=== PATIENT | female | born 2005 | race Caucasian/White ===

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

== ENCOUNTER 2023-01-04 18:36 | Emergency (ER) | payer MEDICAID, SELFPAY ==
[2023-01-04 18:45] VITALS: BP 136/81; PULSE 92; RESP 16; TEMP 36.4; O2SAT 99; BMI 25.5
--- NOTE | 2023-01-04 18:45 | ED.NAVMDI ---
HPI - Nausea/Vomiting/Diarrhea General Chief complaint: Nausea/Vomiting/Diarrhea Stated complaint: , dehydrated, cant eat Time Seen by Provider: 01/04/23 19:25 Source: patient Mode of arrival: ambulatory History of Present Illness HPI Narrative: 17-year-old female , LMP unclear but she is 5 months and presents with increasing nausea and vomiting and states she has not had her fluid replaced even after being seen at [facility] on 12/31 and she was not provided any medication for nausea control. Related Data Previous Rx's Medication Instructions Recorded pyridoxine (vitamin B6) 25 mg 25 mg PO TID #90 tabs 01/04/23 tablet Allergies Allergy/AdvReac Type Severity Reaction Status Date / Time No Known Allergies Allergy Unverified 07/08/21 21:42 [No Known Allergies*] Review of Systems Review of Systems: Pertinent positives and negatives as stated in HPI PMFSH Past Medical History Source: nursing notes reviewed Medical History No known health problems Social History Social History Alcohol intake: never Smoked in Last 30 Days: No Use of substances other than those prescribed or required for medical reasons: No Any prior treatment program specific to substance use: No Advance Directives: No Advance Directives Information Provided: No Patient : Yes Physical Exam Vital Signs: Vital Signs: Last Vital Signs Temp 99.4 F 01/04/23 22:25 Pulse 87 01/04/23 22:25 Resp 16 01/04/23 22:25 BP 116/78 01/04/23 22:25 Pulse Ox 100 01/04/23 22:25 O2 Del Method Room Air 01/04/23 22:25 BMI result Body Mass Index 25.5 VITAL SIGNS: Reviewed. GENERAL: Well developed, well nourished, in no acute distress. HEAD: Normocephalic/atraumatic EYES: PERRLA, EOMI EARS: Ext canals without abnormality NOSE: Nares patent bilateral OROPHARYNX: no oral lesions noted, posterior pharynx clear NECK: Supple, no adenopathy LUNGS: Normal breath sounds. No adventitious sounds or accessory muscle use. SpO2<100> CARDIOVASCULAR: Regular rate and rhythm without noted murmurs ABDOMEN: Soft, non-tender, non-distended with bowel sounds. MUSCULOSKELETAL: No tenderness, deformities, or effusions noted on gross inspection. EXTREMITIES: No cyanosis, clubbing or edema. SKIN: Inspection of the skin reveals no rashes NEUROLOGIC: Alert and oriented x 4. Strength and sensation to light touch were grossly intact x 4. Course Course Course Narrative: This is a rapid medical exam. Deferred additional HPI, ROS, PE to primary provider. 17 yo female previously healthy here with vomiting, chest pain, upper abdominal pain x 1 week, found out she was recently. LMP-irregular (sometime in october) Hasn't had US to confirm IUP WIll check labs, UA, EKG, give SL zofran VSS Medications Administered Discontinued Medications Generic Name Dose Route Start Last Admin Trade Name Freq PRN Reason Stop Dose Admin Sodium Chloride 2,000 mls @ 999 mls/hr 01/04/23 19:30 01/04/23 22:15 Ns IV 01/04/23 21:30 Infused .Q2H1M DIANNE Infusion Sodium Chloride 2,000 mls @ 999 mls/hr 01/04/23 20:00 01/04/23 21:19 Ns IV 01/04/23 22:00 Not Given .Q2H1M DIANNE Potassium Chloride 10 meq in 100 mls @ 100 mls/hr 01/04/23 21:00 01/04/23 23:21 Potassium Chloride/H20 IV 01/04/23 22:59 Infused Q1H DIANNE Infusion Ondansetron HCl 4 mg 01/04/23 18:47 01/04/23 20:06 Ondansetron Odt 4 Mg Tab.Oksana PRAJAPATIINGU 01/04/23 18:48 4 mg ONCE ONE Administration Medical Decision Making Medical Decision Making [facility] Narrative: 17-year-old female who is once again after 5 months and presenting with suspected related nausea and vomiting. She is afebrile, no evidence of infection, anemia but she does have a hypo kalemia which is consistent with her history of nausea and vomiting and will be repleted with 20 mEq total of potassium chloride as well as 2 L of IV fluids and she has already received Zofran for the nausea and vomiting. On re-evaluation patient is feeling much better and is noted to tolerate oral intake, review of all investigations my interpretation is as patient has had nausea and vomiting secondary to and has been rehydrated and had her potassium repleted and will be discharged home with first-line antinausea medications during . Differential Diagnosis Please see the discussion above Lab Data Please see the discussion above 01/04/23 19:11 01/04/23 19:11 Labs: Lab Results 01/04/23 01/04/23 01/04/23 Range/Units 19:11 19:11 19:13 WBC 8.8 (4.8-10.8) X10*3/uL RBC 5.34 (4.20-5.50) X10*6/uL Hgb 14.9 (12.0-16.0) g/dl Hct 41.3 (37.0-47.0) % MCV 77.3 L (80.0-98.0) fL MCH 27.9 (27.0-33.0) pg MCHC 36.1 H (31.0-35.0) g/dl RDW 13.2 (11.0-16.0) % Plt Count 293 (160-400) X10*3/uL MPV 11.2 (9.4-12.3) fL Immature Gran % (Auto) 0.2 (0.0-0.4) % Neut % (Auto) 73.1 H (45-73) % Lymph % (Auto) 19.8 L (20-40) % [place] % (Auto) 6.7 (2-11) % Eos % (Auto) 0.0 (0-4) % Baso % (Auto) 0.2 (0-2) % Lymph # (Auto) 1.8 (1.2-4.9) X10*3/uL [place] # (Auto) 0.6 (0.1-1.2) X10*3/uL Eos # (Auto) 0.0 (0.0-0.4) X10*3/uL Baso # (Auto) 0.0 (0.0-0.2) X10*3/uL Abs Immat Gran (auto) 0.02 (0.00-0.03) X10*3/uL Absolute Neuts (auto) 6.4 (2.0-8.3) x10*3/uL Absolute Nucleated RBC 0.000 (0.0-0.012) X10*3/uL Nucleated RBC % (auto) 0.0 (0.0-0.2) /100WBC Sodium 135 (135-145) mmol/L Potassium 2.8 L (3.3-5.1) mmol/L Chloride 97 (96-108) mmol/L Carbon Dioxide 24 (22-29) mmol/L Anion Gap 17 (12-20) BUN 6 L (9-16) mg/dL Creatinine 0.66 (0.5-1.4) mg/dL Estim Creat Clear Calc 134.0 Estimated GFR > 60 Random Glucose 101 (60-115) mg/dL Calcium 10.1 (8.4-10.2) mg/dL Magnesium 2.4 (1.6-2.6) mg/dL Total Bilirubin 0.9 (0.0-1.0) mg/dL Direct Bilirubin 0.3 (0.0-0.5) mg/dL AST 17 (5-31) U/L ALT 15 (0-31) U/L Alkaline Phosphatase 84 (39-117) U/L Total Protein 8.7 H (6.5-8.0) g/dL Albumin 4.9 (3.5-5.0) g/dL Urine Color Dark Yellow Urine Appearance Clear Urine pH 6.5 (5.0-9.0) Ur Specific Thomson >= 1.030 H (1.005-1.025) Urine Protein 100 (2+) H (Neg-Trace) mg/dL Urine Glucose (UA) Negative (Negative) mg/dL Urine Ketones 40 (Negative) mg/dL Urine Blood Negative (Negative) Urine Nitrite Negative (Negative) Ur Leukocyte Esterase Trace H (Negative) Urine RBC 3-5 H (0-2) /HPF Urine WBC 6-10 H (0-5) /HPF Ur Squamous Epith Cells 6-10 (0-2) /HPF Urine Bacteria Trace (None Seen) Hyaline Casts 0-2 (0-2) /LPF Urine Test (NEGATIVE) 01/04/23 Range/Units 19:13 WBC (4.8-10.8) X10*3/uL RBC (4.20-5.50) X10*6/uL Hgb (12.0-16.0) g/dl Hct (37.0-47.0) % MCV (80.0-98.0) fL MCH (27.0-33.0) pg MCHC (31.0-35.0) g/dl RDW (11.0-16.0) % Plt Count (160-400) X10*3/uL MPV (9.4-12.3) fL Immature Gran % (Auto) (0.0-0.4) % Neut % (Auto) (45-73) % Lymph % (Auto) (20-40) % [place] % (Auto) (2-11) % Eos % (Auto) (0-4) % Baso % (Auto) (0-2) % Lymph # (Auto) (1.2-4.9) X10*3/uL [place] # (Auto) (0.1-1.2) X10*3/uL Eos # (Auto) (0.0-0.4) X10*3/uL Baso # (Auto) (0.0-0.2) X10*3/uL Abs Immat Gran (auto) (0.00-0.03) X10*3/uL Absolute Neuts (auto) (2.0-8.3) x10*3/uL Absolute Nucleated RBC (0.0-0.012) X10*3/uL Nucleated RBC % (auto) (0.0-0.2) /100WBC Sodium (135-145) mmol/L Potassium (3.3-5.1) mmol/L Chloride (96-108) mmol/L Carbon Dioxide (22-29) mmol/L Anion Gap (12-20) BUN (9-16) mg/dL Creatinine (0.5-1.4) mg/dL Estim Creat Clear Calc Estimated GFR Random Glucose (60-115) mg/dL Calcium (8.4-10.2) mg/dL Magnesium (1.6-2.6) mg/dL Total Bilirubin (0.0-1.0) mg/dL Direct Bilirubin (0.0-0.5) mg/dL AST (5-31) U/L ALT (0-31) U/L Alkaline Phosphatase (39-117) U/L Total Protein (6.5-8.0) g/dL Albumin (3.5-5.0) g/dL Urine Color Urine Appearance Urine pH (5.0-9.0) Ur Specific Thomson (1.005-1.025) Urine Protein (Neg-Trace) mg/dL Urine Glucose (UA) (Negative) mg/dL Urine Ketones (Negative) mg/dL Urine Blood (Negative) Urine Nitrite (Negative) Ur Leukocyte Esterase (Negative) Urine RBC (0-2) /HPF Urine WBC (0-5) /HPF Ur Squamous Epith Cells (0-2) /HPF Urine Bacteria (None Seen) Hyaline Casts (0-2) /LPF Urine Test POSITIVE H (NEGATIVE) Independent Interpretation I performed an independent interpretation of an: EKG Interpretation: Normal sinus rhythm, HR -72, no STEMI, [place]/QRS/QTC is within normal limits. Discharge Plan Discharge Clinical Impression: Dehydration, Vomiting during Patient Disposition: Home, Self-Care Instructions: Nausea and Vomiting in (ED), Dehydration (ED) Additional Instructions: 1. Start vitamins. Drink plenty of water. 2. 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 Return to the ER for any worsening symptoms. Prescriptions: New pyridoxine (vitamin B6) 25 mg tablet 25 mg PO TID Qty: 90 0RF
--- NOTE | 2023-01-04 18:49 | ECG_ITS ---
Test Reason : CP Blood Pressure : / mmHG Vent. Rate : 072 BPM Atrial Rate : 072 BPM P-R Int : 132 ms QRS Dur : 082 ms QT Int : 404 ms P-R-T Axes : 082 079 039 degrees QTc Int : 442 ms Normal sinus rhythm with sinus arrhythmia Nonspecific ST abnormality with premature ventricular or aberrantly conducted complexes No previous ECGs available Referred By: Yolanda Lezama Electronically Signed By:HILLARY AKBAR MD
[2023-01-04 19:18] LABS: MANUAL DIFF FLAG NO
[2023-01-04 19:20] LABS: Basophils Percent Auto 0.2 % (0-2); Hematocrit 41.3 % (37.0-47.0); Hemoglobin 14.9 g/dl (12.0-16.0); Imm Gran Abs Auto 0.02 X10*3/uL (0.00-0.03); Imm Gran Pct Auto 0.2 % (0.0-0.4); Lymphocytes Absolute Auto 1.8 X10*3/uL (1.2-4.9); Lymphocytes Percent Auto 19.8 % (20-40); Mean Corpuscular HGB Conc 36.1 g/dl (31.0-35.0); Mean Corpuscular Hemoglobin 27.9 pg (27.0-33.0); Mean Corpuscular Volume 77.3 fL (80.0-98.0); Mean Platelet Volume 11.2 fL (9.4-12.3); Monocytes Absolute Auto 0.6 X10*3/uL (0.1-1.2); Monocytes Percent Auto 6.7 % (2-11); Neutrophils Absolute Auto 6.4 x10*3/uL (2.0-8.3); Neutrophils Percent Auto 73.1 % (45-73); Platelet Count 293 X10*3/uL (160-400); Red Blood Count 5.34 X10*6/uL (4.20-5.50); Red Cell Distribution Width 13.2 % (11.0-16.0); White Blood Count 8.8 X10*3/uL (4.8-10.8)
[2023-01-04 19:26] LABS: Appearance Urine Clear; Color Urine Dark Yellow; Glucose Urine UA Negative (Negative); Leukocyte Esterase Urine Trace (Negative); Nitrite Urine Negative (Negative); PH 6.5 (5.0-9.0); Specific Gravity - Urine >= 1.030 (1.005-1.025); UMIC TRIGGER UACC YES; Urine Blood Negative (Negative); Urine Ketones 40 mg/dL (Negative); Urine Protein 100 (2+) mg/dL (Neg-Trace)
[2023-01-04 19:31] LABS: UPreg QC Valid YES; Urine Pregnancy POSITIVE (NEGATIVE)
[2023-01-04 19:40] LABS: Bacteria Urine Trace (None Seen); Hyaline Casts Urine 0-2 /LPF (0-2); UACC Culture Trigger YES
[2023-01-04 19:41] LABS: Alanine Aminotransferase 15 U/L (0-31); Albumin Level 4.9 g/dL (3.5-5.0); Alkaline Phosphatase 84 U/L (39-117); Anion Gap 17 (12-20); Aspartate Amino Transferase 17 U/L (5-31); Bilirubin Direct 0.3 mg/dL (0.0-0.5); Bilirubin Total 0.9 mg/dL (0.0-1.0); Blood Urea Nitrogen 6 mg/dL (9-16); Calcium 10.1 mg/dL (8.4-10.2); Carbon Dioxide 24 mmol/L (22-29); Chloride 97 mmol/L (96-108); Estimated Glomerular Filt Rate > 60; Glucose Random 101 mg/dL (60-115); Potassium 2.8 mmol/L (3.3-5.1); Sodium 135 mmol/L (135-145); Total Protein 8.7 g/dL (6.5-8.0)
[2023-01-04 20:00] VITALS: BP 120/74; PULSE 77; RESP 16; TEMP 37; O2SAT 100
--- NOTE | 2023-01-04 20:00 | PC.NURSE ---
Pt to ED for c/o Nausea with vomiting X 1 week. Pt is a 17-year-old female who had recently had a 5 month old baby and is 5 months and presents with increasing nausea and vomiting and states she had a home and states is again. Pt otherwise denies any CP, SOB, feeling of faint, Numbness/tingling to extremites or any abdominal pain. Pt placed in gown in [facility], awaiting MD jordan
[2023-01-04 20:05] LABS: Magnesium 2.4 mg/dL (1.6-2.6)
[2023-01-04] MEDS: Ondansetron ODT 4 MG TAB.RAPDIS TRANSLINGU (20:06)
[2023-01-04] MEDS: 0.9 % Sodium Chloride 2,000 ML 999 ML IV (20:13)
[2023-01-04 20:22] VITALS: BP 117/63; PULSE 62; RESP 16; TEMP 37; O2SAT 100
[2023-01-04] MEDS: Potassium Chloride/H20 10 MEQ/100 ML PIGGYBACK 100 MEQ IV ×2 (21:20→22:21)
[2023-01-04 22:25] VITALS: BP 116/78; PULSE 87; RESP 16; TEMP 37.4; O2SAT 100
--- NOTE | 2023-01-04 23:33 | PC.NURSE ---
pt was able to tolerate food and drink without any Nausea or vomiting. MD made aware of pts ability to eat without N/v.
== END 2023-01-05 00:08 | disposition home or self-care (01) ==
PROVIDERS: Nurse Practitioner Family; Emergency Provider Student in an Organized Health Care Education/Training Program
DX: O21.0 Mild hyperemesis gravidarum (principal); R07.89 Other chest pain; Z3A.21 21 weeks gestation of pregnancy; Z79.899 Other long term (current) drug therapy
CPT/HCPCS: 36415; 80048; 80076; 81001; 81025; 83735; 85025; 87086; 93005; 96361; 96365; 99284; 99285